=== PATIENT | female | born 1990 | race Caucasian/White ===

== ENCOUNTER 2017-10-28 23:05 | Inpatient (IN) | payer OTHER ==
[~2017-10-28] VITALS: Ht 170.2 cm; Wt 69.1 kg
[~2017-10-28 23:05] MED LIST: ENDOCET 5-3251 EACH PO; FLOMAX0.4 MG PO; IBUPROFEN800 MG PO; KEFLEX500 MG PO; LORTAB 5-325 M1 EACH PO; NAPROSYN500 MG PO; PERCOCET 5/31 TABLET PO; PRENATAL VITAM1 EAC1 PO; ZOFRAN ODT4 MG PO
[2017-10-28 23:22] VITALS: BP 120/66
[2017-10-28 23:25] VITALS: BP 120/66
[2017-10-28] MEDS ORDERED: MELATONIN10 M1 PO (23:26)
[2017-10-28] MEDS ORDERED: PRENATAL TABLE1 EAC3 PO (23:27)
[2017-10-29] VITALS (32 sets, daily range): BP systolic 83–132; BP diastolic 48–81
[2017-10-29 00:51] LABS: EOSINOPHIL (%) 1.2 % (0-5); EOSINOPHIL COUNT 0.1 K/uL (0-0.3); HEMATOCRIT 27.8 % (36.0-46.0); IMMATURE GRANULOCYTE (%) 0.6 % (0.0-0.7); INSTRUMENT ABS NEUTROPHIL CT 4.7 K/uL; LYMPHOCYTE COUNT 1.4 K/uL (1.0-2.8); MCH 28.8 PG (29.0-34.0); MCHC 33.5 G/DL (30.0-36.0); MCV 86.1 FL (83-99); MEAN PLAT.VOLUME 12.4 uM^3 (9.5-12.4); MONOCYTE (%) 9.3 % (3-12); MONOCYTE COUNT 0.6 K/uL (0-0.8); NEUTROPHIL COUNT 4.7 K/uL (1.8-6.4); PLATELET COUNT 185 K/uL (156-360); RBC DIS.WIDTH-CV 12.5 % (11.8-14.6); RBC DIS.WIDTH-SD 39.1 % (39-53); RED BLOOD COUNT 3.23 M/uL (3.80-5.20); WHITE BLOOD COUNT 6.9 K/uL (4.1-10.2)
[2017-10-30 06:28] VITALS: BP 131/70
[2017-10-30 15:21] VITALS: BP 118/65
[2017-10-30 22:04] VITALS: BP 109/68
[2017-10-31 08:36] VITALS: BP 120/68
[2017-10-31] MEDS ORDERED: IBUPROFEN800 MG PO (09:02)
== END 2017-10-31 09:50 | disposition home or self-care (01) | DRG 775 ==
LOC: LDRP-OP 23:05 → 2WEST 23:06 → LDRP-OP 12-09 08:11
PROVIDERS: Midwife
DX: O99.824 Streptococcus B carrier state complicating childbirth (principal); O99.344 Other mental disorders complicating childbirth; F41.8 Other specified anxiety disorders; O69.1XX0 Labor and delivery complicated by cord around neck, with compression, not applicable or unspecified; O71.82 Other specified trauma to perineum and vulva; Z3A.38 38 weeks gestation of pregnancy; Z37.0 Single live birth; Z82.49 Family history of ischemic heart disease and other diseases of the circulatory system; Z87.442 Personal history of urinary calculi
CPT/HCPCS: 85025; C1755; G0378; J2540; J3010; J7120

== ENCOUNTER 2018-01-13 14:04 | Emergency (ER) | payer OTHER ==
[~2018-01-13] VITALS: Ht 170.2 cm; Wt 60.2 kg
[~2018-01-13 14:04] MED LIST changes: +MELATONIN10 M1 PO; +PRENATAL TABLE1 EAC3 PO
[2018-01-13 14:22] LABS: APPEARANCE CLOUDY ((CLEAR)); BILIRUBIN NEGATIVE; BLOOD NEGATIVE; COLOR YELLOW ((YELLOW)); GLUCOSE (STRIP) NEGATIVE; KETONES NEGATIVE; LEUKOCYTES LARGE; NITRITE NEGATIVE; PROTEIN (STRIP) 30; SPECIFIC GRAVITY 1.023 (1.000-1.030); UROBILINOGEN 0.2 MG/DL (0.2-1.0)
[2018-01-13 14:32] LABS: BACTERIA 1+ /HPF; EPITHELIAL CELLS 2+ /HPF; MUCUS 1+ /LPF; UCUL ADDED? YES; WHITE BLOOD CELLS 40-50 /HPF (0-5)
[2018-01-13 14:39] LABS: HEMATOCRIT 35.3 % (36.0-46.0); HEMOGLOBIN 11.7 G/DL (11.9-15.5); MCH 28.1 PG (29.0-34.0); MCHC 33.1 G/DL (30.0-36.0); MCV 84.7 FL (83-99); PLATELET COUNT 237 K/uL (156-360); RBC DIS.WIDTH-CV 14.8 % (11.8-14.6); RBC DIS.WIDTH-SD 45.7 % (39-53); RED BLOOD COUNT 4.17 M/uL (3.80-5.20); WHITE BLOOD COUNT 8.8 K/uL (4.1-10.2)
[2018-01-13 14:51] LABS: CHLORIDE 106 mEq/L (99-109); POTASSIUM 4.1 mEq/L (3.7-5.4); SODIUM 139 mEq/L (136-147)
[2018-01-13 14:53] LABS: GLUCOSE 108 mg/dL (70-99)
[2018-01-13 14:57] LABS: CREATININE 0.8 mg/dL (0.6-1.3); GFR ESTIMATE (CALCULATED) > 59 mL/min/; UREA NITROGEN (BUN) 14 mg/dL (9-23)
[2018-01-13 15:05] LABS: QUANTITATIVE HCG < 4.0 MIU/ML
[2018-01-13] MEDS ORDERED: PERCOCET 5/31 TABLET PO (17:08)
[2018-01-13] MEDS ORDERED: BACTRIM,SEPT1 TABLET PO (17:08)
[2018-01-13] MEDS ORDERED: FLOMAX0.4 MG PO (17:08)
[2018-01-13 17:24] VITALS: BP 110/76
== END 2018-01-13 17:26 | disposition home or self-care (01) ==
LOC: EME 14:04
DX: N20.1 Calculus of ureter (principal); Z87.442 Personal history of urinary calculi; Z87.891 Personal history of nicotine dependence
CPT/HCPCS: 74176; 80048; 81003; 84702; 85027; 87086; 99281; 99285; J1885; J7030

== ENCOUNTER → 2018-01-23 | Outpatient (CLI) | payer OTHER ==
[~2018-01-23] VITALS: Ht 170.2 cm; Wt 59.0 kg
[~2018-01-23] MED LIST changes: +BACTRIM,SEPT1 TABLET PO
== END | disposition home or self-care (01) ==
LOC: AMB 07:30
PROC: 0TF7XZZ Fragmentation in Left Ureter, External Approach (ICD-10-PCS; principal; 2018-01-23)
DX: N20.2 Calculus of kidney with calculus of ureter (principal); Z87.891 Personal history of nicotine dependence
CPT/HCPCS: 74019; J0330; J2250